=== PATIENT | male | born 1960 | race Caucasian/White ===

== ENCOUNTER 2019-09-13 12:07 | Emergency (ER) | payer BC, OTHER ==
[~2019-09-13] VITALS: Ht 180.3 cm; Wt 115.7 kg
[2019-09-13 12:21] VITALS: BP 157/90
[2019-09-13] MEDS ORDERED: IBUPROFEN 600 MG TABLET. PO ONE (12:45)
[2019-09-13] MEDS ORDERED: MELO7.5T29 PO (12:50)
[2019-09-13] MEDS ORDERED: HYDR-3165 PO (12:50)
--- NOTE | 2019-09-13 12:50 | RAD ---
Left ankle x-rays 3 views HISTORY: Left medial ankle pain after eversion mechanism injury. FINDINGS: Diffuse ankle and lower calf soft tissue edema and swelling. Spur of the plantar calcaneus. No fracture or dislocation. IMPRESSION: No acute osseous injury. Soft tissue edema and swelling. Electronically signed by: Blane Allen MD (09/13/2019 12:47 PM) [facility]
--- NOTE | 2019-09-13 12:50 | PHYS DOC ---
Past History Past Medical History: Hypertension Past Surgical History: No Surgical History Smoking: Non-smoker Alcohol Use: None Drug Use: None Adult General Chief Complaint Chief Complaint: ANKLE PROBLEM HPI HPI Patient is a 59-year-old male presents complaining of left ankle pain after an inversion mechanism injury, slipping at work at approximately 7:00 this morning. He has been able to walk. No numbness or tingling. Increased pain with movement. Pain is moderate to severe. No numbness or tingling. Pain decreases with nonweightbearing. No radiation of the discomfort.[] Review of Systems Review of Systems Constitutional: Denies fever or chills [] Eyes: Denies change in visual acuity, redness, or eye pain [] HENT: Denies nasal congestion or sore throat [] Respiratory: Denies cough or shortness of breath [] Cardiovascular: No chest pain or palpitations[] GI: Denies abdominal pain, nausea, vomiting, bloody stools or diarrhea [] : Denies dysuria or hematuria [] Musculoskeletal: Denies back pain, see history of present illness[] Integument: Denies rash or skin lesions [] Neurologic: Denies headache, focal weakness or sensory changes [] Endocrine: Denies polyuria or polydipsia [] All other systems were reviewed and found to be within normal limits, except as documented in this note. Allergies Allergies Allergies Coded Allergies Type Severity Reaction Last Updated Verified Penicillins Allergy Unknown 04/12/16 Yes Physical Exam Physical Exam Constitutional: Well developed, well nourished, no acute distress, non-toxic appearance. [] HENT: Normocephalic, atraumatic, bilateral external ears normal, oropharynx moist, no oral exudates, nose normal. [] Eyes: PERRLA, EOMI, conjunctiva normal, no discharge. [] Neck: Normal range of motion, no tenderness, supple, no stridor. [] Cardiovascular:Heart rate regular rhythm, no murmur [] Lungs & Thorax: Bilateral breath sounds clear to auscultation [] Abdomen: Bowel sounds normal, soft, no tenderness, no masses, no pulsatile masses. [] Skin: Warm, dry, no erythema, no rash. [] Back: No tenderness, no CVA tenderness. [] Extremities: No tenderness, no cyanosis, no clubbing, ROM intact, no edema. [] Neurologic: Alert and oriented X 3, normal motor function, normal sensory function, no focal deficits noted. [] Psychologic: Affect normal, judgement normal, mood normal. [] Current Patient Data Vital Signs Vital Signs Date Time Temp Pulse Resp B/P (MAP) Pulse Ox O2 Delivery O2 Flow Rate FiO2 09/13/19 12:21 97.9 70 16 94 Room Air EKG EKG [] Radiology/Procedures Radiology/Procedures Left ankle x-ray shows no evidence of a fracture or dislocation[] Course & Med Decision Making Course & Med Decision Making Pertinent Labs and Imaging studies reviewed. (See chart for details) ED course: Patient arrived, was placed in bed, and tolerated exam well. He was transported to and from radiology with any Patients. He was given pain medicine area did findings and plan were discussed with the patient who voiced understanding. All questions were answered. He was discharged in improved condition. He was distally neurovascularly intact after ankle stirrup splint was placed. Medical decision making: There is no evidence of a fracture or dislocation. No evidence of significant ligamentous or tendinous injury. No evidence of neuro or vascular compromise.[] Dragon Disclaimer Dragon Disclaimer This electronic medical record was generated, in whole or in part, using a voice recognition dictation system. Departure Departure: Impression: Primary Impression: Moderate left ankle sprain Disposition: 01 HOME, SELF-CARE Condition: IMPROVED Referrals: FAUSTINO JOSE (PCP) Follow-up in 2 days Patient Instructions: Ankle Sprain, Stirrup Ankle Brace Additional Instructions: Follow-up with your regular physician her Worker's Compensation physician in 2 days. Apply warm compresses for 15 minutes at a time at least 4 times a day. Wear the ankle splint while walking about during the day. Return to the ER if worsening pain, weakness, or any other concerns. Scripts Hydrocodone Bit/Acetaminophen (NORCO 5-325 TABLET) 1 Each Tablet 1 TAB PO Q4-6HRS for severe pain, #10 TAB Prov: DAYA BIRCH DO 09/13/19 Meloxicam (MELOXICAM) 7.5 Mg Tablet 7.5 MG PO DAILY for PAIN, #20 TAB Prov: DAYA BIRCH DO 09/13/19 Problem Qualifiers Primary Impression: Moderate left ankle sprain Encounter type: initial encounter Qualified Codes: S93.402A - Sprain of unspecified ligament of left ankle, initial encounter DAYA BIRCH DO Sep 13, 2019 12:50
== END 2019-09-13 13:01 | disposition home or self-care (01) ==
LOC: ER 12:07
DX: S93.402A Sprain of unspecified ligament of left ankle, initial encounter (principal); I10 Essential (primary) hypertension; Z88.0 Allergy status to penicillin; X50.9XXA Other and unspecified overexertion or strenuous movements or postures, initial encounter; Y93.89 Activity, other specified; Y92.89 Other specified places as the place of occurrence of the external cause; Y99.8 Other external cause status
CPT/HCPCS: 29515; 73610; 99284